=== PATIENT | female | born 1930 | race Caucasian/White ===

== ENCOUNTER 2017-08-05 17:19 | Emergency (ER) | payer OTHER, BC ==
[2017-08-05 17:26] VITALS: BP 150/70; PULSE 75; TEMP 97.1; BMI 32.9
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
== END 2017-08-05 20:15 | disposition home or self-care (01) ==
LOC: JER 17:19 → JERFT 17:19 → JER 20:15
DX: M25.511 Pain in right shoulder (principal); V53.6XXA Passenger in pick-up truck or van injured in collision with car, pick-up truck or van in traffic accident, initial encounter; Y92.488 Other paved roadways as the place of occurrence of the external cause; Y93.89 Activity, other specified; I48.91 Unspecified atrial fibrillation; Z79.01 Long term (current) use of anticoagulants; I25.10 Atherosclerotic heart disease of native coronary artery without angina pectoris; I11.0 Hypertensive heart disease with heart failure; I50.9 Heart failure, unspecified; E78.00 Pure hypercholesterolemia, unspecified
CPT/HCPCS: 99282-25